=== PATIENT | female | born 1960 | race Hispanic/Latino ===

== ENCOUNTER → 2024-11-08 | Outpatient (CLI) | payer OTHER ==
[~2024-11-08] MED LIST: MELO-108 PO
--- NOTE | 2024-11-09 07:21 | HMCIMG ---
EXAM: CT Cardiac calcium scoring. CLINICAL HISTORY: Screening. TECHNIQUE: Thin collimated axial CT cardiac images were obtained. A CT scan is done according to ALARA (As Low As Reasonably Achievable). CONTRAST: None. COMPARISON: None provided. FINDINGS: Calcium Score: VESSEL Number of lesions Volume mm3 Equi. Mass/mg Calcium score LM 0 0 - 0 LAD 0 0 - 0 LCX 0 0 - 0 RCA 0 0 - 0 Total 0 0 - 0 IMPRESSION: The total calcium score is 0. No identifiable calcification. /Nunez
== END | disposition home or self-care (01) ==
LOC: RAH 11:01
PROVIDERS: ATTEND Family Medicine
DX: Z13.6 Encounter for screening for cardiovascular disorders (principal)
CPT/HCPCS: 75571